=== PATIENT | male | born 1985 | race Hispanic/Latino ===

== ENCOUNTER 2020-03-19 10:48 | Emergency (ER) | payer SELFPAY ==
[2020-03-19] MEDS ORDERED: ACETAMINOPHEN EXTRA STRENGTH 500 MG TABLET ONE (11:09)
[2020-03-19 11:55] LABS: BASOPHILS % (AUTO) 0.4 % (0.0-5.0); EOSINOPHILS % (AUTO) 0.1 % (0.0-8.0); HEMATOCRIT 40.5 % (42-54); LYMPHOCYTES % (AUTO) 4.6 % (21.0-51.0); MEAN CORPUSCULAR HEMOGLOBIN 32.1 pg (27.0-33.0); MEAN CORPUSCULAR HGB CONC 33.8 g/dL (32.0-36.0); MEAN CORPUSCULAR VOLUME 94.8 fL (79-99); NEUTROPHILS % (AUTO) 88.2 % (40.0-77.0); PLATELET COUNT (AUTO) 190 K/uL (130-400); RED BLOOD CELL COUNT(AUTO) 4.27 MIL/uL (4.50-6.20); RED CELL DISTRIBUTION WIDTH 13.6 % (11.0-15.5); WHITE BLOOD COUNT (AUTO) 22.8 K/uL (4.8-10.8)
[2020-03-19 12:06] LABS: INR 0.98 (0.85-1.15); PARTIAL THROMBOPLASTIN TIME 29.1 SEC (26.3-35.5); PROTHROMBIN TIME 10.6 SEC (9.6-11.6)
[2020-03-19] MEDS ORDERED: SODIUM CHLORIDE 0.9% 1000ML 1,000 ML IV ONE (12:09)
[2020-03-19 12:13] LABS: ALANINE AMINOTRANSFERASE 26 U/L (12-78); ALBUMIN 3.5 g/dL (3.5-5.0); ASPARTATE AMINOTRANSFERASE 18 U/L (10-37); BILIRUBIN,TOTAL 0.7 mg/dL (0.2-1.0); CARBON DIOXIDE 25 mmol/L (21-32); CHLORIDE 100 mmol/L (101-111); CREATINE KINASE, TOTAL 100 U/L (21-232); CREATININE 1.1 mg/dL (0.5-1.5); GLOMERULAR FILTR. RATE CALC 81 mL/min (>60); GLUCOSE,RANDOM 136 mg/dL (70-105); MYOGLOBIN 37 ng/mL (10-92); POTASSIUM 3.7 mmol/L (3.5-5.1); SODIUM SERUM 133 mmol/L (136-145); TOTAL PROTEIN, SERUM 7.7 g/dL (6.0-8.3); TROPONIN I < 0.04 ng/mL (0.00-0.06); UREA NITROGEN, BLOOD 8 mg/dL (7-18)
[2020-03-19] MEDS ORDERED: IBUPROFEN 600 MG TABLET ONE (12:21)
[2020-03-19] MEDS ORDERED: CEFTRIAXONE SODIUM 1 GM ONE (12:21)
[2020-03-19 12:33] LABS: APPEARANCE,URINE Clear (CLEAR); BILIRUBIN,URINE Negative (NEGATIVE); COLOR,URINE Dark Yellow (YELLOW); GLUCOSE, URINE (UA) Negative (NEGATIVE); KETONES,URINE Negative (NEGATIVE); LEUKOCYTE ESTERASE ,URINE Negative (NEGATIVE); NITRATE,URINE Negative (NEGATIVE); OCCULT BLOOD,URINE Small (NEGATIVE); PROTEIN,URINE POS 2+ mg/dL (NEGATIVE)
[2020-03-19 12:54] LABS: CREATINE KINASE, TOTAL 103 U/L (21-232); LIPASE 83 U/L (114-286)
[2020-03-19 13:07] LABS: BACTERIA,URINE Rare /HPF (None Seen); MUCUS,URINE Rare LPF (None Seen); RBC,URINE 0-1 /HPF (0-1); SQUAMOUS EPITHELIAL CELL,UR Rare /HPF (0-2); WBC,URINE 0-1 /HPF (0-1)
[2020-03-19] MEDS ORDERED: IOHEXOL-350 75 ML VIAL IV ONE (15:17)
== END 2020-03-19 17:18 | disposition left against medical advice (07) ==
LOC: EDH 10:48
DX: A41.9 Sepsis, unspecified organism (principal); J02.0 Streptococcal pharyngitis; Z20.828 Contact with and (suspected) exposure to other viral communicable diseases
CPT/HCPCS: 36415; 71045; 74177; 76705; 80053; 81001; 82550 ×2; 83605 ×2; 83690; 83874; 84145; 84484 ×2; 85025; 85610; 85730; 86900; 86901; 87040 ×2; 87088; 87426; 87804 ×2; 87880; 93005; 96361; 96374; 99285; J0696; J7030; Q9967; U0003